=== PATIENT | female | born 1995 ===

== ENCOUNTER 2024-08-24 00:52 | Inpatient (IN) | payer MEDICAID ==
[2024-08-24] MEDS ORDERED: Sodium Chloride 0.9% 2.5 ML Syringe FLUSH PRN ×2 (02:11→02:34)
[2024-08-24] MEDS ORDERED: Sodium Chloride 0.9% 10 ML Syringe FLUSH PRN ×2 (02:11→02:34)
[2024-08-24] MEDS ORDERED: Sodium Chloride 0.9% 20 ML SDV IV PRN ×2 (02:11→02:34)
[2024-08-24] MEDS ORDERED: Lidocaine 1% 50 ML MDV INJECT PRN (02:34)
[2024-08-24] MEDS ORDERED: Methylergonovine 0.2 MG/1 ML Amp IM PRN ×2 (02:34→21:54)
[2024-08-24] MEDS ORDERED: Carboprost Tromethamine 250 MCG/1 mL Vial IM PRN (02:34)
[2024-08-24] MEDS ORDERED: Water For Irrigation,Sterile 1,000 ML Container IRR PRN (02:34)
[2024-08-24] MEDS ORDERED: Misoprostol 200 MCG Tab PO PRN (02:34)
[2024-08-24] MEDS ORDERED: Ondansetron 4 MG/2 ML SDV IVPUSH PRN ×4 (02:34→21:54)
[2024-08-24] MEDS ORDERED: Butorphanol 1 MG/ML SDV IVPUSH PRN (02:34)
[2024-08-24] MEDS ORDERED: Oxytocin/0.9 % Sodium Chloride 30 UNIT/500 ML BAG IV SCH (02:45)
[2024-08-24] MEDS ORDERED: Lactated Ringers 1,000 ML IV SCH ×2 (02:45→22:00)
[2024-08-24 02:46] LABS: HEMATOCRIT 41.8 % (37.0-47.0); HEMOGLOBIN 14.8 g/dL (12.0-16.0); MEAN CORPUSCULAR HEMOGLOBIN 32.3 pg (28.0-32.0); MEAN CORPUSCULAR HGB CONC 35.4 g/dL (32.0-36.0); MEAN CORPUSCULAR VOLUME 91.3 fL (83.0-99.0); MEAN PLATELET VOLUME 10.2 fL (9.4-12.3); PLATELET COUNT,PLT 166 K/uL (150-400); RED BLOOD CELL COUNT 4.58 M/uL (4.10-5.30); WHITE BLOOD CELL COUNT,WBC 11.98 K/uL (3.9-11.3)
[2024-08-24 03:21] LABS: BILIRUBIN TOTAL 0.3 mg/dL (0.2-1.0); CALCIUM 9.1 mg/dL (8.5-10.1); CARBON DIOXIDE,CO2 21.4 mmol/L (21.0-32.0); CREATININE 0.8 mg/dL (0.6-1.0); EST CRCL DRUG DOSING (CG) 125.73 mL/min; POTASSIUM,K 3.7 mmol/L (3.5-5.1); PROTEIN TOTAL,TP 6.1 g/dL (6.4-8.2)
[2024-08-24] MEDS ORDERED: Phenylephrine HCl In 0.9% NaCl 1 MG/10 ML Syringe IVPUSH PRN ×2 (07:12→08:47)
[2024-08-24] MEDS ORDERED: ePHEDrine 50 MG/ML SDV IVPUSH PRN (07:12)
[2024-08-24] MEDS ORDERED: Ropivacaine HCl/PF 400 MG in Premix Bag 1 BAG EPIDUR SCH (07:15)
[2024-08-24] MEDS ORDERED: dexmedeTOMIDine HCl 200 MCG/2 ML SDV EPIDUR SCH (07:15)
[2024-08-24] MEDS ORDERED: Metoclopramide 10 MG/2 ML SDV IVPUSH PRN (08:47)
[2024-08-24] MEDS ORDERED: diphenhydrAMINE 50 MG/ML SDV IVPUSH PRN ×2 (08:47→21:54)
[2024-08-24] MEDS ORDERED: Naloxone 0.4 MG/ML SDV IVPUSH PRN ×2 (08:47→21:54)
[2024-08-24] MEDS ORDERED: Morphine 2 MG/ML SYRINGE IVPUSH PRN (08:47)
[2024-08-24] MEDS ORDERED: HYDROmorphone 1 MG/ML Syringe IVPUSH PRN (08:47)
[2024-08-24] MEDS ORDERED: Albuterol 0.083% 2.5 MG/3 ML Neb Soln NEB PRN (08:47)
[2024-08-24] MEDS ORDERED: Nalbuphine 10 MG/1 ML Vial IVPUSH PRN (08:47)
[2024-08-24] MEDS ORDERED: fentaNYL 100 MCG/2 ML SDV IVPUSH PRN (08:47)
[2024-08-24] MEDS ORDERED: fentaNYL 50 MCG/ML SDV IVPUSH PRN (08:47)
[2024-08-24] MEDS ORDERED: Sodium Chloride 0.9% 20 ML ONE (08:59)
[2024-08-24] MEDS ORDERED: Ropivacaine 0.5% 5 MG/ML 30 ML SDV ONE (08:59)
[2024-08-24] MEDS ORDERED: Morphine PF 10 MG/10 ML SDV ONE (08:59)
[2024-08-24] MEDS ORDERED: ceFAZolin 2 GM Vial ONE (08:59)
[2024-08-24] MEDS ORDERED: dexmedeTOMIDine HCl 200 MCG/2 ML SDV ONE (08:59)
[2024-08-24] MEDS ORDERED: Phenylephrine 1% 10 MG/ML SDV ONE (08:59)
[2024-08-24] MEDS ORDERED: ePHEDrine 50 MG/ML SDV ONE (08:59)
[2024-08-24] MEDS ORDERED: Oxytocin 10 Units/1 ML SDV ONE (08:59)
[2024-08-24] MEDS ORDERED: Dexamethasone 4 MG/ML 5 ML MDV ONE (09:02)
[2024-08-24] MEDS: Acetaminophen/oxyCODONE 325-5 MG Tab PO PRN (17:27)
[2024-08-24] MEDS: Ketorolac 30 MG/ML SDV IVPUSH SCH (20:32)
[2024-08-24] MEDS ORDERED: Lanolin 100% Cream 7 GM Tube TOP PRN (21:54)
[2024-08-24] MEDS ORDERED: Oxytocin 10 Units/1 ML SDV IM PRN (21:54)
[2024-08-24] MEDS ORDERED: Acetaminophen/oxyCODONE 325-5 MG Tab PO PRN (21:54)
[2024-08-24] MEDS ORDERED: Misoprostol 200 MCG Tab RECTAL PRN (21:54)
[2024-08-24] MEDS: Docusate Sodium 100 MG Cap PO SCH (22:32)
[2024-08-25] MEDS: Ketorolac 30 MG/ML SDV IVPUSH SCH ×2 (02:40→21:45)
[2024-08-25 06:09] LABS: HEMATOCRIT 37.5 % (37.0-47.0); HEMOGLOBIN 12.7 g/dL (12.0-16.0)
[2024-08-26] MEDS: Ibuprofen 800 MG Tab PO PRN (08:35)
== END 2024-08-26 15:22 | disposition home or self-care (01) | DRG 788 ==
LOC: MW.OB 00:52 → OBSVTOIN 11:15 → MW.OB 15:23
PROVIDERS: ADMIT Obstetrics & Gynecology Gynecology; ATTEND Obstetrics & Gynecology Obstetrics
PROC: 3E0R3BZ Introduction of Anesthetic Agent into Spinal Canal, Percutaneous Approach (ICD-10-PCS; 2024-08-24)
PROC: 10D00Z1 Extraction of Products of Conception, Low, Open Approach (ICD-10-PCS; principal; 2024-08-24 08:00)
DX: O48.0 Post-term pregnancy (principal); Z3A.41 41 weeks gestation of pregnancy; Z37.0 Single live birth; O34.211 Maternal care for low transverse scar from previous cesarean delivery; O99.214 Obesity complicating childbirth; Z79.899 Other long term (current) drug therapy
CPT/HCPCS: 01961; 36415; 59025; 59514; 64488; 76819; 76819-26; 80053; 85014; 85018; 85027; 86592; 86850; 86900; 86901; A9270-GY; J0690; J1100; J1885; J2274; J2371; J2590; J2795; J3490